=== PATIENT | male | born 1990 | race Caucasian/White ===

== ENCOUNTER 2018-01-24 23:33 | Emergency (ER) | payer OTHER, SELFPAY ==
[2018-01-24 23:34] VITALS: BP 141/107; PULSE 96; RESP 18; TEMP 36.7; O2SAT 97; BMI 27.1
--- NOTE | 2018-01-24 23:43 | ED.DCSUM_ITS ---
- ER Visit Summary Date of Service: 01/24/18 Chief Complaint: Right thumb laceration History of Present Illness: The patient is a 27 M [id number] laceration right thumb at work. Occurred at 11 PM. Metal filter. Tetanus in the last 5 years. Bleeding controlled. No anticoagulation medicines. No loss of function. Physical Examination: General: Alert and oriented ?3, no acute distress HEENT: Normocephalic, atraumatic. Moist mucosa membranes Neck: supple, nontender. Cardiovascular: Regular rate and rhythm, no murmurs Respiratory: Normal breath sounds, symmetric, no distress Abdomen: Soft, nontender, nondistended Extremities: Nontender, no edema, pulses intact ?4 Neuro: no focal neurological deficits. Skin: Right thumb, 1.5 cm subcutaneous laceration mid volar aspect of the distal phalanx. Additional 0.5 cm laceration medial to primary laceration. Minimal bleeding. No joint involvement. Test Results: [] Emergency Department Course and Treatment: There is no joint involvement for concerns for tendon injury. Tetanus in the last 5 years. Wound was closed using a total of 4, 5-0 nylon sutures. Wound care discussed. Keep wound clean and covered at work. He will follow-up with [employer] for reevaluation suture removal as an outpatient. Treatment Plan: [] Disposition: Discharge Impression: Right thumb laceration status post repair This note was generated with [employer] dictation software. It may contain incorrect words, spelling, and punctuation that were not noted in review of the chart prior to signing ED Disposition - Plan for ED Patient: Disposition: Home or Assisted Living Chief Complaint: Laceration Diagnosis: Laceration of right thumb Instructions: ED Laceration Hand Referrals: NOT,DEFINED [NON-STAFF] - [facility]YSICIANS] - 3-5 Days
[2018-01-25 00:47] VITALS: BP 129/73; PULSE 81; RESP 16; O2SAT 100
--- NOTE | 2018-01-25 00:48 | ED.RN ---
THIS NURSE REVIEWED D/C INSTRUCTIONS WITH PT. PT VERBALIZED UNDERSTANDING OF INSTRUCTIONS. PT DENIES FURTHER NEEDS OR QUESTIONS AT THIS TIME. PT AMBULATES FROM ROOM ON OWN WITHOUT ASSISTANCE FROM STAFF
== END 2018-01-25 00:50 | disposition home or self-care (01) ==
PROVIDERS: Emergency Provider Emergency Medicine
DX: S61.011A Laceration without foreign body of right thumb without damage to nail, initial encounter (principal); X58.XXXA Exposure to other specified factors, initial encounter; Y93.9 Activity, unspecified; Y92.9 Unspecified place or not applicable; F17.220 Nicotine dependence, chewing tobacco, uncomplicated
CPT/HCPCS: 12001; 99283

== ENCOUNTER → 2019-06-13 | Outpatient (CLI) | payer BC, SELFPAY ==
[2019-06-03 08:04] VITALS: BMI 26.4
--- NOTE | 2019-06-13 14:00 | VAS_PTH ---
PATIENT: JESU PIÑA LOC: [facility] U#:[id number] AGE/SX: 28/M ROOM: RE06/13/[address]: Dr. Dillon Acosta MD : [id number] BED: DIS: 06/13/2019 SPEC #: [id number] RECD: 06/13/19 15:03 STATUS: SATHYA DIANA #: [id number] LAUREL: 06/13/19 14:[address]: Dillon Acosta DEPT: SURGICAL PATHOLOGY RECD BY: Wilber Mcintyre ENTERED: 06/14/19 09:49 SP TYPE: VAS OTHR DR: Bernadette [facility] Phys Tissues: A - Vas deferens, NOS B - Vas deferens, NOS Procedures: Surgery Specimen Level II HEADER OPERATION: Bilateral partial vasectomy PRE-OP DIAGNOSIS: Sterilization TISSUE SUBMITTED: A - Right vas deferens, B - Left vas deferens MICROSCOPIC DIAGNOSIS A. Right vas deferens, segmental vasectomy: Complete cross-section of vas deferens with no pathologic change. B. Left vas deferens, segmental vasectomy: Complete cross-section of vas deferens with no pathologic change. AM:jessie 06/17/19 MICROSCOPIC DESCRIPTION Slides are reviewed. GROSS DESCRIPTION A - Received is one container designated right vas deferens. The specimen consists of a tubular segment of peter soft tissue measuring 1 cm in length and 0.2 cm in diameter. The entire specimen is submitted in one cassette. It will be sectioned at the time of embedding. B - Received is one container designated left vas deferens. The specimen consists of a tubular segment of peter soft tissue measuring 0.7 cm in length and 0.2 cm in diameter. The entire specimen is submitted in one cassette. It will be sectioned at the time of embedding. / SJ:jessie 06/14/19 TC:4 CPT: 57162 x2
== END | disposition home or self-care (01) ==
LOC: LABSPEC 15:24
PROVIDERS: Referring Provider Surgery; Visit Provider Surgery
DX: Z30.2 Encounter for sterilization (principal)
CPT/HCPCS: 88302

== ENCOUNTER → 2019-07-04 15:11 | Outpatient (CLI) | payer BC, SELFPAY ==
[2019-06-13 15:28] VITALS: BMI 26.4
[2019-07-05 14:24] LABS: Semen Analysis Post Vas ABSENT
== END ==
PROVIDERS: Referring Provider Surgery; Visit Provider Surgery
DX: Z30.2 Encounter for sterilization (principal)
CPT/HCPCS: 89321

== ENCOUNTER 2021-08-27 15:58 | Outpatient (CLI) | payer BC, SELFPAY ==
[2021-09-02 10:08] LABS: Testosterone, % Free 2.43 % (1.50-4.20); Testosterone, Free 13.19 ng/dL (5.00-21.00)
[2021-09-02 12:35] LABS: Sex Hormone-binding Globulin 24.6 nmol/L (16.5-55.9); Testosterone, Total 543 ng/dL (264-916)
== END 2021-08-27 23:59 | disposition home or self-care (01) ==
LOC: LAB 16:01
PROVIDERS: Visit Provider Nurse Practitioner Family
DX: Z00.00 Encounter for general adult medical examination without abnormal findings (principal)
CPT/HCPCS: 36415; 84270; 84402; 84403